=== PATIENT | female | born 1940 | race African-American/Black ===

== ENCOUNTER 2018-03-26 15:08 | Emergency (ER) | payer MEDICARE ==
[2018-03-26] MEDS ORDERED: Lidocaine 1% (PF) 30 ML VIAL ONE (15:57)
[2018-03-26] MEDS ORDERED: Morphine 4 MG/ML VIAL ONE (16:19)
[2018-03-26] MEDS ORDERED: Ibuprofen 200 MG TAB ONE (16:19)
== END 2018-03-26 17:11 | disposition home or self-care (01) ==
LOC: ERS 15:08
DX: M62.838 Other muscle spasm (principal); E11.9 Type 2 diabetes mellitus without complications; I10 Essential (primary) hypertension; M10.9 Gout, unspecified; M19.90 Unspecified osteoarthritis, unspecified site; Z79.4 Long term (current) use of insulin; Z79.899 Other long term (current) drug therapy
CPT/HCPCS: 20553; 96372; J2001; J2270

== ENCOUNTER → 2020-12-10 | Day surgery (SDC) | payer MEDICARE, MEDICAID | LOC: MAMMO 06:50 | PROVIDERS: ATTEND Internal Medicine | PROC: 0H9T3ZX Drainage of Right Breast, Percutaneous Approach, Diagnostic (ICD-10-PCS; principal; 2020-12-10) | DX: N60.31 Fibrosclerosis of right breast (principal) | CPT/HCPCS: 19081; 76098; 88305 ==

== ENCOUNTER 2022-10-03 09:13 | Outpatient (CLI) | payer MEDICARE, MEDICAID | END 2022-10-03 09:14 | disposition home or self-care (01) | LOC: SCSMRI 09:13 | PROVIDERS: ATTEND Internal Medicine | DX: Q45.3 Other congenital malformations of pancreas and pancreatic duct (principal); K86.89 Other specified diseases of pancreas; N28.9 Disorder of kidney and ureter, unspecified; K83.8 Other specified diseases of biliary tract; Z90.49 Acquired absence of other specified parts of digestive tract | CPT/HCPCS: 74183; 82565 ==

== ENCOUNTER 2024-08-21 14:32 | Inpatient (IN) | payer OTHER, MEDICAID ==
[2024-08-21 15:53] LABS: #Basophils Less than 0.03 10x3/uL (0.0-0.2); %Eosinophils 1.2 % (0.0-10.0); %Lymphocytes 20.4 % (21.0-51.0); %Neutrophils 71.1 % (42.0-75.0); Hematocrit 21.1 % (36.0-47.0); Hemoglobin 6.8 g/dL (12.0-16.0); Mean Corpuscular HGB CONC 32.2 g/dL (32.0-36.0); Mean Corpuscular Volume 80.5 fL (78.0-98.0); Mean Platelet Volume 9.9 fL (7.4-10.4); Platelet Count 139 10x3/uL (130-400); RBC Distribution Width 16.5 % (11.5-14.5); Red Blood Cell (RBC) Count 2.62 mill/uL (4.20-5.40)
[2024-08-21 16:05] LABS: INR-International Normal Ratio 1.1; PTT 35.9 sec (22.9-36.1); Prothrombin Time 14.1 sec (12.0-14.7)
[2024-08-21 16:07] LABS: ALT (SGPT) 7 U/L (8-55); AST (SGOT) 16 U/L (5-34); Albumin 3.1 g/dL (3.4-4.8); Alkaline Phosphatase 62 U/L (40-110); Anion Gap 17 mmol/L (10-20); BUN (Urea Nitrogen) 51 mg/dL (9.8-20.1); Bilirubin, Total 0.3 mg/dL (0.2-1.2); Calc. Creatinine Clearance 0 mL/min (70-130); Calcium 7.6 mg/dL (7.8-10.44); Carbon Dioxide 18 mmol/L (23-31); Chloride 113 mmol/L (98-107); Estimated GFR 9; Glucose 96 mg/dL (83-110); Potassium 4.5 mmol/L (3.5-5.1); Protein, Total 7.1 g/dL (5.8-8.1); Sodium 143 mmol/L (136-145)
[2024-08-21 16:12] LABS: Troponin I 0.042 ng/mL (< 0.028)
[2024-08-21] MEDS ORDERED: Dextrose 50% Abboject 50 ML SYRINGE SLOW IVP PRN (17:48)
[2024-08-21] MEDS ORDERED: Dextrose 5% in Water 1,000 ML IV PRN (17:48)
[2024-08-21] MEDS ORDERED: Insulin Lispro 100 UNIT/ML 10 ML VIAL SC PRN (17:48)
[2024-08-21] MEDS ORDERED: Glucagon 1 MG/ML KIT IM PRN (17:48)
[2024-08-21 18:58] VITALS: BMI 20.2
[2024-08-21] MEDS: Calcium Carbonate 500 MG ChewTAB PO SCH (20:37)
[2024-08-21] MEDS: hydrALAZINE 25 MG TAB PO SCH (20:37)
[2024-08-21] MEDS: cloNIDine 0.2 MG TAB PO SCH (20:37)
[2024-08-22] MEDS: Levothyroxine 150 MCG TAB PO SCH (05:06)
[2024-08-22] MEDS: Benzonatate 100 MG CAP PO PRN (05:06)
[2024-08-22] MEDS: Acetaminophen 325 MG TAB PO PRN (05:06)
[2024-08-22 05:31] LABS: #Basophils Less than 0.03 10x3/uL (0.0-0.2); #Eosinophils Less than 0.03 10x3/uL (0.0-0.7); %Eosinophils 0.3 % (0.0-10.0); %Lymphocytes 17.2 % (21.0-51.0); %Monocytes 9.7 % (0.0-10.0); %Neutrophils 72.2 % (42.0-75.0); Hematocrit 25.3 % (36.0-47.0); Hemoglobin 8.2 g/dL (12.0-16.0); Mean Corpuscular HGB CONC 32.4 g/dL (32.0-36.0); Mean Corpuscular Hemoglobin 26.7 pg (27.0-31.0); Mean Corpuscular Volume 82.4 fL (78.0-98.0); Platelet Count 129 10x3/uL (130-400); RBC Distribution Width 16.8 % (11.5-14.5); Red Blood Cell (RBC) Count 3.07 mill/uL (4.20-5.40)
[2024-08-22 05:38] LABS: Anion Gap 14 mmol/L (10-20); BUN (Urea Nitrogen) 49 mg/dL (9.8-20.1); Calc. Creatinine Clearance 7 mL/min (70-130); Calcium 7.3 mg/dL (7.8-10.44); Carbon Dioxide 17 mmol/L (23-31); Chloride 114 mmol/L (98-107); Estimated GFR 10; Glucose 100 mg/dL (83-110); Potassium 4.8 mmol/L (3.5-5.1); Sodium 140 mmol/L (136-145)
[2024-08-22] MEDS ORDERED: Epoetin (ESRD) 10,000 UNITS/ML VIAL SC SCH (08:45)
[2024-08-22 10:12] LABS: HBSAB Concentration 12.93 mIU/mL; HBsAg Index 0.28 S/CO (0-0.99); Hep B Core Total Ab NONREACTIVE (NonReactive); Hep B Surf AB REACTIVE (NonReactive); Hep B Surf Ag NONREACTIVE S/CO (NonReactive); Hep C IgG Ab NONREACTIVE S/CO (NonReactive); Hep C Index 0.08 S/CO (0-0.79)
[2024-08-22] MEDS: Amlodipine 10 MG TAB PO SCH (10:17)
[2024-08-22] MEDS: EPOETIN ALFA-EPBX (ESRD) 10,000 UNITS/ML VIAL SC SCH (13:09)
[2024-08-22] MEDS: Tuberculin PPD 0.1 ML SYRINGE (10 TEST VIAL) I-DERMAL SCH (13:32)
[2024-08-22] MEDS: Sodium Bicarbonate Tab 325 MG TAB PO SCH (15:28)
[2024-08-22 16:27] VITALS: BMI 20.2
[2024-08-23] MEDS: traMADol HCl 50 MG TAB PO PRN (04:44)
[2024-08-23 11:51] LABS: #Basophils Less than 0.03 10x3/uL (0.0-0.2); #Eosinophils Less than 0.03 10x3/uL (0.0-0.7); %Eosinophils 0.3 % (0.0-10.0); %Lymphocytes 18.3 % (21.0-51.0); %Neutrophils 71.7 % (42.0-75.0); Hematocrit 27.9 % (36.0-47.0); Hemoglobin 9.1 g/dL (12.0-16.0); Mean Corpuscular HGB CONC 32.6 g/dL (32.0-36.0); Mean Corpuscular Hemoglobin 27.3 pg (27.0-31.0); Mean Corpuscular Volume 83.8 fL (78.0-98.0); Mean Platelet Volume 9.3 fL (7.4-10.4); Platelet Count 145 10x3/uL (130-400); Red Blood Cell (RBC) Count 3.33 mill/uL (4.20-5.40)
[2024-08-23 12:44] LABS: Calcium 7.6 mg/dL (7.8-10.44); Chloride 112 mmol/L (98-107); Potassium 4.8 mmol/L (3.5-5.1); Sodium 141 mmol/L (136-145)
[2024-08-23 12:45] LABS: Glucose 116 mg/dL (83-110)
[2024-08-23 12:46] LABS: Anion Gap 16 mmol/L (10-20); Carbon Dioxide 18 mmol/L (23-31)
[2024-08-23 12:49] LABS: BUN (Urea Nitrogen) 52 mg/dL (9.8-20.1); Calc. Creatinine Clearance 7 mL/min (70-130); Estimated GFR 10
[2024-08-23 13:40] LABS: Phosphorus 3.3 mg/dL (2.3-4.7)
[2024-08-23] MEDS: Calcium Carbonate 500 MG ChewTAB PO SCH (14:15)
[2024-08-23] MEDS: Ondansetron PF 4 MG/2 ML Vial IVP PRN (20:51)
[2024-08-24 06:09] LABS: #Basophils Less than 0.03 10x3/uL (0.0-0.2); %Eosinophils 0.9 % (0.0-10.0); %Monocytes 9.8 % (0.0-10.0); %Neutrophils 70.4 % (42.0-75.0); Hematocrit 26.7 % (36.0-47.0); Hemoglobin 8.6 g/dL (12.0-16.0); Mean Corpuscular HGB CONC 32.2 g/dL (32.0-36.0); Mean Corpuscular Hemoglobin 27.1 pg (27.0-31.0); Mean Corpuscular Volume 84.2 fL (78.0-98.0); Mean Platelet Volume 10.7 fL (7.4-10.4); Platelet Count 158 10x3/uL (130-400); RBC Distribution Width 16.8 % (11.5-14.5); Red Blood Cell (RBC) Count 3.17 mill/uL (4.20-5.40)
[2024-08-24 06:32] LABS: Anion Gap 14 mmol/L (10-20); BUN (Urea Nitrogen) 52 mg/dL (9.8-20.1); Calc. Creatinine Clearance 7 mL/min (70-130); Calcium 7.7 mg/dL (7.8-10.44); Carbon Dioxide 21 mmol/L (23-31); Chloride 108 mmol/L (98-107); Estimated GFR 10; Glucose 96 mg/dL (83-110); Potassium 4.9 mmol/L (3.5-5.1); Sodium 138 mmol/L (136-145)
[2024-08-24] MEDS: Azithromycin 250 MG TAB PO SCH (08:29)
[2024-08-24] MEDS: Ergocalciferol 1.25 MG(50,000 UNITS) CAP PO SCH (11:38)
[2024-08-25 05:39] LABS: #Basophils Less than 0.03 10x3/uL (0.0-0.2); #Eosinophils Less than 0.03 10x3/uL (0.0-0.7); %Basophils 0.3 % (0.0-1.0); %Eosinophils 0.3 % (0.0-10.0); %Lymphocytes 16.2 % (21.0-51.0); %Monocytes 11.8 % (0.0-10.0); %Neutrophils 69.8 % (42.0-75.0); Hematocrit 27.7 % (36.0-47.0); Hemoglobin 8.3 g/dL (12.0-16.0); Mean Corpuscular Volume 90.2 fL (78.0-98.0); Platelet Count 141 10x3/uL (130-400); RBC Distribution Width 17.4 % (11.5-14.5); Red Blood Cell (RBC) Count 3.07 mill/uL (4.20-5.40)
[2024-08-25 05:53] LABS: Anion Gap 16 mmol/L (10-20); BUN (Urea Nitrogen) 54 mg/dL (9.8-20.1); Calc. Creatinine Clearance 7 mL/min (70-130); Carbon Dioxide 19 mmol/L (23-31); Chloride 108 mmol/L (98-107); Estimated GFR 10; Glucose 98 mg/dL (83-110); Potassium 5.4 mmol/L (3.5-5.1); Sodium 138 mmol/L (136-145)
[2024-08-25] MEDS ORDERED: Famotidine/PF 20 mg/2ml Vial ONE (06:30)
[2024-08-25] MEDS ORDERED: Heparin 10,000 UNITS/ 10 ML VIAL ONE ×2 (06:50→08:48)
[2024-08-25] MEDS ORDERED: Bupivacaine 0.25% HCL 30 ML VIAL ONE (06:50)
[2024-08-25] MEDS ORDERED: EPINEPHrine 1 MG/ML VIAL ONE (06:50)
[2024-08-25] MEDS ORDERED: Lidocaine 2% PF 5 ML VIAL ONE ×2 (06:50→07:02)
[2024-08-25] MEDS ORDERED: PROPOFOL 20 ML ONE (07:02)
[2024-08-25] MEDS ORDERED: CEFAZOLIN 1 GM VIAL ONE (07:14)
[2024-08-25] MEDS ORDERED: fentaNYL 50 mcg/mL 1 mL Vial ONE (07:23)
[2024-08-25] MEDS ORDERED: Ondansetron PF 4 MG/2 ML Vial ONE (07:26)
[2024-08-25] MEDS ORDERED: Ondansetron HCl/PF 4 MG/2 ML Vial IVP PRN (07:50)
[2024-08-25] MEDS ORDERED: Ketorolac Tromethamine 30 MG (1 mL) VIAL ONE (08:05)
[2024-08-25] MEDS ORDERED: Dexamethasone 20 MG/5 ML VIAL ONE (08:05)
[2024-08-25] MEDS ORDERED: Esmolol 100 MG/10 ML VIAL ONE (08:05)
[2024-08-26 05:22] LABS: #Basophils Less than 0.03 10x3/uL (0.0-0.2); #Eosinophils Less than 0.03 10x3/uL (0.0-0.7); %Eosinophils 0.3 % (0.0-10.0); %Lymphocytes 12.2 % (21.0-51.0); %Monocytes 12.8 % (0.0-10.0); %Neutrophils 73.9 % (42.0-75.0); Hematocrit 24.2 % (36.0-47.0); Hemoglobin 7.6 g/dL (12.0-16.0); Mean Corpuscular HGB CONC 31.4 g/dL (32.0-36.0); Mean Corpuscular Volume 86.1 fL (78.0-98.0); Platelet Count 147 10x3/uL (130-400); RBC Distribution Width 16.7 % (11.5-14.5); Red Blood Cell (RBC) Count 2.81 mill/uL (4.20-5.40)
[2024-08-26 05:28] LABS: Anion Gap 13 mmol/L (10-20); BUN (Urea Nitrogen) 31 mg/dL (9.8-20.1); Calc. Creatinine Clearance 10 mL/min (70-130); Calcium 8.1 mg/dL (7.8-10.44); Carbon Dioxide 25 mmol/L (23-31); Chloride 107 mmol/L (98-107); Estimated GFR 15; Glucose 92 mg/dL (83-110); Potassium 4.4 mmol/L (3.5-5.1); Sodium 141 mmol/L (136-145)
[2024-08-26] MEDS ORDERED: Heparin 10,000 UNITS/ 10 ML VIAL ONE (09:06)
[2024-08-26 12:50] LABS: Anion Gap 11 mmol/L (10-20); BUN (Urea Nitrogen) 12 mg/dL (9.8-20.1); Calc. Creatinine Clearance 22 mL/min (70-130); Calcium 8.5 mg/dL (7.8-10.44); Carbon Dioxide 29 mmol/L (23-31); Chloride 105 mmol/L (98-107); Estimated GFR 37; Glucose 65 mg/dL (83-110); Potassium 3.5 mmol/L (3.5-5.1); Sodium 141 mmol/L (136-145)
[2024-08-26] MEDS: diphenhydrAMINE 25 MG CAP PO SCH (13:11)
[2024-08-26 15:02] LABS: Phosphorus 1.6 mg/dL (2.3-4.7)
[2024-08-27 08:51] LABS: #Basophils Less than 0.03 10x3/uL (0.0-0.2); #Eosinophils Less than 0.03 10x3/uL (0.0-0.7); %Eosinophils 0.2 % (0.0-10.0); %Lymphocytes 12.7 % (21.0-51.0); %Neutrophils 72.7 % (42.0-75.0); Hematocrit 31.5 % (36.0-47.0); Hemoglobin 10.6 g/dL (12.0-16.0); Mean Corpuscular HGB CONC 33.7 g/dL (32.0-36.0); Mean Corpuscular Hemoglobin 27.7 pg (27.0-31.0); Mean Corpuscular Volume 82.5 fL (78.0-98.0); Platelet Count 163 10x3/uL (130-400); RBC Distribution Width 15.7 % (11.5-14.5); Red Blood Cell (RBC) Count 3.82 mill/uL (4.20-5.40)
[2024-08-27 09:04] LABS: Anion Gap 14 mmol/L (10-20); BUN (Urea Nitrogen) 20 mg/dL (9.8-20.1); Calc. Creatinine Clearance 12 mL/min (70-130); Calcium 8.4 mg/dL (7.8-10.44); Carbon Dioxide 28 mmol/L (23-31); Chloride 104 mmol/L (98-107); Estimated GFR 19; Glucose 77 mg/dL (83-110); Potassium 3.9 mmol/L (3.5-5.1); Sodium 142 mmol/L (136-145)
[2024-08-27] MEDS: CEFAZOLIN 2 GM in Sodium Chloride 0.9% 100 ML IVPB SCH (12:24)
[2024-08-27] MEDS ORDERED: Lidocaine 2% PF 5 ML VIAL ONE ×2 (14:11→14:13)
[2024-08-27] MEDS ORDERED: PROPOFOL 20 ML ONE (14:11)
[2024-08-27] MEDS ORDERED: Heparin 10,000 UNITS/ 10 ML VIAL ONE ×2 (14:13→16:41)
[2024-08-27] MEDS ORDERED: Bupivacaine PF 0.5% 30 ML VIAL ONE (14:13)
[2024-08-27] MEDS ORDERED: Heparin 5,000 UNITS/ML VIAL ONE (14:13)
[2024-08-27] MEDS ORDERED: EPINEPHrine 1 MG/ML VIAL ONE (14:13)
[2024-08-27] MEDS ORDERED: Protamine Sulfate 50 MG/5 ML VIAL ONE (14:14)
[2024-08-27] MEDS ORDERED: Etomidate 40 MG (20 mL) VIAL ONE (15:04)
[2024-08-27] MEDS ORDERED: fentaNYL 50 mcg/mL 1 mL Vial ONE ×3 (15:17→18:23)
[2024-08-27] MEDS ORDERED: Dexamethasone 4 mg/ml Vial ONE (16:42)
[2024-08-27] MEDS ORDERED: Ondansetron PF 4 MG/2 ML Vial ONE (17:29)
[2024-08-27] MEDS ORDERED: Acetaminophen 500 MG TAB PO PRN (18:18)
[2024-08-27] MEDS: diphenhydrAMINE 25 MG CAP PO SCH (20:50)
[2024-08-28 05:48] LABS: #Basophils Less than 0.03 10x3/uL (0.0-0.2); #Eosinophils Less than 0.03 10x3/uL (0.0-0.7); %Monocytes 8.6 % (0.0-10.0); Hematocrit 28.4 % (36.0-47.0); Hemoglobin 9.2 g/dL (12.0-16.0); Mean Corpuscular HGB CONC 32.4 g/dL (32.0-36.0); Mean Corpuscular Hemoglobin 28.1 pg (27.0-31.0); Mean Corpuscular Volume 86.9 fL (78.0-98.0); Mean Platelet Volume 10.2 fL (7.4-10.4); Platelet Count 176 10x3/uL (130-400); RBC Distribution Width 15.9 % (11.5-14.5); Red Blood Cell (RBC) Count 3.27 mill/uL (4.20-5.40)
[2024-08-28 06:07] LABS: Chloride 105 mmol/L (98-107); Potassium 4.3 mmol/L (3.5-5.1); Sodium 141 mmol/L (136-145)
[2024-08-28 06:11] LABS: Anion Gap 14 mmol/L (10-20); BUN (Urea Nitrogen) 30 mg/dL (9.8-20.1); Calc. Creatinine Clearance 9 mL/min (70-130); Calcium 7.8 mg/dL (7.8-10.44); Carbon Dioxide 26 mmol/L (23-31); Estimated GFR 13; Glucose 122 mg/dL (83-110)
[2024-08-28] MEDS: guaiFENesin/Codeine 200 mg/20 mg 10 ml Cup PO PRN (13:49)
[2024-08-28 19:20] VITALS: BP 120/60; TEMP 97.8
== END 2024-08-28 18:03 | disposition home or self-care (01) | DRG 674 ==
LOC: ERS 14:32 → ERHOLD 16:52 → T4-B 18:34 → OBSVTOIN 08-22 09:19
PROVIDERS: ADMIT Internal Medicine; ATTEND Internal Medicine
PROC: 30233N1 Transfusion of Nonautologous Red Blood Cells into Peripheral Vein, Percutaneous Approach (ICD-10-PCS; 2024-08-21)
PROC: 0JH63XZ Insertion of Tunneled Vascular Access Device into Chest Subcutaneous Tissue and Fascia, Percutaneous Approach (ICD-10-PCS; principal; 2024-08-25)
PROC: 02HV33Z Insertion of Infusion Device into Superior Vena Cava, Percutaneous Approach (ICD-10-PCS; 2024-08-25)
PROC: B5181ZA Fluoroscopy of Superior Vena Cava using Low Osmolar Contrast, Guidance (ICD-10-PCS; 2024-08-25)
PROC: 03180JD Bypass Left Brachial Artery to Upper Arm Vein with Synthetic Substitute, Open Approach (ICD-10-PCS; 2024-08-27)
DX: I12.0 Hypertensive chronic kidney disease with stage 5 chronic kidney disease or end stage renal disease (principal); T82.858A Stenosis of other vascular prosthetic devices, implants and grafts, initial encounter; E11.22 Type 2 diabetes mellitus with diabetic chronic kidney disease; N18.5 Chronic kidney disease, stage 5; E03.9 Hypothyroidism, unspecified; Z88.0 Allergy status to penicillin; Z90.49 Acquired absence of other specified parts of digestive tract; Z90.710 Acquired absence of both cervix and uterus; D63.1 Anemia in chronic kidney disease; G25.3 Myoclonus; J40 Bronchitis, not specified as acute or chronic
CPT/HCPCS: 36415; 36416; 36430; 71045; 80048; 80053; 82306; 83970; 84100; 84484; 85025; 85610; 85730; 86580; 86704; 86706; 86803; 86850; 86870; 86900; 86901; 86905; 86922; 87340; 90935; 93005; 93970; A6258; C1750; C1751; C1752; G0257; J0171; J0665; J0690; J1100; J1644; J1885; J2405; J2704; J2720; J3010; J3490; P9016; Q5105